=== PATIENT | female | born 1985 | race Caucasian/White ===

== ENCOUNTER 2018-03-11 00:54 | Emergency (ER) | payer OTHER ==
[2018-03-11] MEDS ORDERED: RABIES VACC,HUMAN DIPLOID (PF) 2.5 UNIT KIT IM ONE (02:24)
[2018-03-11] MEDS ORDERED: RABIES IMMUNE GLOB 150 UNIT/ML 10 ML VIAL IM ONE (02:24)
--- NOTE | 2018-03-11 02:25 | ED ---
Animal Bite HPI - General Chief Complaint: Animal Bite Stated Complaint: bat bite Time Seen by Provider: 03/11/18 01:35 Source: patient Mode of arrival: ambulatory Limitations: no limitations - History of Present Illness Initial Comments: 32-year-old female patient presents the emergency department today for evaluation after being bit by a bat. Patient states that she was attempting to get a bat out of her house, had a bag around her hand and went to grab the back , states that she felt 2 sharp punctures to the tip of the right index finger. Patient states that she did not notice any bleeding or wounds. Patient states that the finger feels abnormal. She denies any numbness or tingling. States that the back only attack once cornered. She did not retain the bats body. She is unsure how long the bat may have been present in the house. Patient denies any recent rash, fever, chills, shortness breath, chest pain, abdominal pain, nausea, vomiting, diarrhea, constipation, back pain, numbness, tingling, dizziness, weakness, hematuria, dysuria, urinary urgency, urinary frequency, headache, visual changes, or any other complaints. - Related Data Allergies Allergy/AdvReac Type Severity Reaction Status Date / Time azithromycin Allergy Abdominal Verified 03/11/18 00:59 [From Zithromax Z-Gabriele] Pain Review of Systems ROS Statement: Those systems with pertinent positive or pertinent negative responses have been documented in the HPI. ROS Other: All systems not noted in ROS Statement are negative. Past Medical History Past Medical History: No Reported History History of Any Multi-Drug Resistant Organisms: None Reported Past Surgical History: No Surgical Hx Reported Past Psychological History: No Psychological Hx Reported Smoking Status: Never smoker Past Alcohol Use History: None Reported Past Drug Use History: None Reported General Exam Limitations: no limitations General appearance: alert, in no apparent distress, other (This is a well- developed, well-nourished adult female patient in no acute distress. Vital signs upon presentation are temperature 98.2F, pulse 87, respirations 20, blood pressure 132/84, pulse ox 98% on room air.) Eye exam: Present: normal appearance, PERRL, EOMI. Absent: scleral icterus, conjunctival injection, periorbital swelling Respiratory exam: Present: normal lung sounds bilaterally. Absent: respiratory distress, wheezes, rales, rhonchi, stridor Cardiovascular Exam: Present: regular rate, normal rhythm, normal heart sounds. Absent: systolic murmur, diastolic murmur, rubs, gallop, clicks Extremities exam: Present: normal inspection, full ROM, normal capillary refill. Absent: tenderness, pedal edema, joint swelling, calf tenderness Neurological exam: Present: alert, oriented X3, CN II-XII intact Psychiatric exam: Present: normal affect, normal mood Skin exam: Present: warm, dry, intact, normal color. Absent: rash Course Vital Signs 03/11/18 00:59 Temperature 98.2 F Pulse Rate 87 Respiratory 20 Rate Blood Pressure 132/84 O2 Sat by Pulse 98 Oximetry Medical Decision Making - Medical Decision Making 32-year-old female patient percents to the emergency department today for evaluation of that bite to the right middle finger. Physical examination was relatively unremarkable, no punctures noted. We did administer rabies immune globulin, rabies vaccine, and tetanus vaccine. Patient was given prescription for follow-up doses of the rabies vaccine on days 3, 7, and 14. She was given vaccine information statement. Return parameters were discussed in detail. She verbalizes understanding and agrees with this plan. Disposition Clinical Impression: Bat bite of finger Disposition: HOME SELF-CARE Condition: Good Instructions: Animal Bite (ED), Rabies Vaccine (ED) Additional Instructions: Return for rabies vaccine administration according to the dates on the prescription. Follow-up with your primary care physician for recheck in 1-2 days. Return here immediate for any new, worsening, or concerning symptoms. Is patient prescribed a controlled substance at d/c from ED?: No Referrals: Ammon Solorzano MD [Primary Care Provider] - 1-2 days Time of Disposition: 03:22
[2018-03-11] MEDS ORDERED: DIPH,PERTUS(ACELL)TETVAC-LF 0.5 ML VIAL IM ONE (03:17)
[2018-03-11 03:47] VITALS: BP 165/118; PULSE 75; RESP 18; TEMP 98.7
== END 2018-03-11 03:47 | disposition home or self-care (01) ==
LOC: EC 00:54
DX: S61.252A Open bite of right middle finger without damage to nail, initial encounter (principal); Z23 Encounter for immunization; Z88.1 Allergy status to other antibiotic agents; W55.81XA Bitten by other mammals, initial encounter; Y92.009 Unspecified place in unspecified non-institutional (private) residence as the place of occurrence of the external cause
CPT/HCPCS: 90375; 90471; 90472; 90675; 90715; 96372; 99283

== ENCOUNTER → 2018-03-14 | Outpatient (CLI) | payer OTHER ==
[2018-03-14 09:41] VITALS: BP 140/76; PULSE 71; RESP 16; TEMP 98.4
[2018-03-14] MEDS: RABIES VACCINE (PCEC) 2.5 UNIT KIT IM ONE (10:12)
== END | disposition home or self-care (01) ==
LOC: PEDOP 09:17
PROVIDERS: ATTEND Internal Medicine
DX: Z20.3 Contact with and (suspected) exposure to rabies (principal); W53.81XD Bitten by other rodent, subsequent encounter; S61.259D Open bite of unspecified finger without damage to nail, subsequent encounter
CPT/HCPCS: 90471; 90675

== ENCOUNTER 2018-03-21 07:04 | Emergency (ER) | payer OTHER ==
[2018-03-21 07:13] VITALS: BP 125/83; PULSE 78; RESP 20; TEMP 98.4
--- NOTE | 2018-03-21 07:46 | ED ---
General Adult HPI - General Chief complaint: Skin/Abscess/Foreign Body Stated complaint: rash Time Seen by Provider: 03/21/18 07:05 Source: patient, RN notes reviewed Mode of arrival: ambulatory Limitations: no limitations - History of Present Illness Initial comments: This is a 32-year-old female who presents emergency Department with a rash to her abdomen. Patient states it itches very slightly. Patient states she's had no fever or any other symptoms. Patient states his only on her abdomen. Patient doesn't know of any new detergents or soaps. Patient states she's in the midst of getting rabies shots. Patient denies any difficulty breathing shortness of breath or throat tightening. Patient states she's never had this rash before. Patient was just concerned it might get worse. - Related Data Home Medications Medication Instructions Recorded Confirmed Cetirizine HCl [Zyrtec] 10 mg PO DAILY 03/14/18 03/21/18 Citalopram Hydrobromide [CeleXA] 40 mg PO DAILY 03/14/18 03/21/18 Esomeprazole Magnesium [NexIUM 20 mg PO HS 03/14/18 03/21/18 24Hr] Previous Rx's Medication Instructions Recorded predniSONE 40 mg PO DAILY #8 tab 03/21/18 Allergies Allergy/AdvReac Type Severity Reaction Status Date / Time azithromycin Allergy Abdominal Verified 03/14/18 09:29 [From Zithromax Z-Gabriele] Pain Review of Systems ROS Statement: Those systems with pertinent positive or pertinent negative responses have been documented in the HPI. ROS Other: All systems not noted in ROS Statement are negative. Past Medical History Past Medical History: GERD/Reflux History of Any Multi-Drug Resistant Organisms: None Reported Past Surgical History: No Surgical Hx Reported Past Psychological History: Anxiety Smoking Status: Never smoker Past Alcohol Use History: Rare Past Drug Use History: None Reported General Exam - General Exam Comments Initial Comments: GENERAL Patient is well-developed and well-nourished. Patient is in mild distress. EYES Patient's pupils are equal and round. Extraocular motion is intact SKIN Very this light abdominal rash small blanchable erythematous dots that are coordinating with hair follicles NEURO The patient is alert and oriented 3 PYSCH Patient has normal interpersonal interactions. MUSCULOSKELETAL All 4 times and full range of motion. Limitations: no limitations Course Vital Signs 03/21/18 07:09 Temperature 98.4 F Pulse Rate 78 Respiratory 20 Rate Blood Pressure 125/83 O2 Sat by Pulse 100 Oximetry Disposition Clinical Impression: Contact dermatitis Disposition: HOME SELF-CARE Condition: Good Instructions: Contact Dermatitis (ED) Prescriptions: predniSONE 40 mg PO DAILY #8 tab Is patient prescribed a controlled substance at d/c from ED?: No Referrals: Ammon Solorzano MD [Primary Care Provider] - 1-2 days Time of Disposition: 07:46
== END 2018-03-21 07:55 | disposition home or self-care (01) ==
LOC: EC 07:04
DX: L25.9 Unspecified contact dermatitis, unspecified cause (principal); K21.9 Gastro-esophageal reflux disease without esophagitis; Z79.899 Other long term (current) drug therapy; Z88.1 Allergy status to other antibiotic agents
CPT/HCPCS: 99282

== ENCOUNTER → 2022-07-25 | Outpatient (CLI) | payer OTHER ==
[2022-07-26 00:02] LABS: Basophils # (A) 0.03 X 10*3/uL (0.00-0.10); Basophils % (A) 0.5 %; Eosinophils # (A) 0.04 X 10*3/uL (0.04-0.35); Eosinophils % (A) 0.6 %; HCT 34.2 % (37.2-46.3); HGB 11.2 g/dL (12.0-15.0); Immature Grans, Automated 0.3 %; Lymphocytes # (A) 3.16 X 10*3/uL (0.90-5.00); Lymphocytes % (A) 50.6 %; MCH 27.8 pg (27.0-32.0); MCHC 32.7 g/dL (32.0-37.0); MCV 84.9 fL (80.0-97.0); Mean Platelet Volume 9.8 fL (9.5-12.2); Monocytes # (A) 0.42 X 10*3/uL (0.20-1.00); Monocytes % (A) 6.7 %; NRBC Per 100 WBC 0 /100 WBCS (0.0-0.0); Neutrophils # (A) 2.58 X 10*3/uL (1.80-7.70); Neutrophils % (A) 41.3 %; Platelet Count 263 X 10*3/uL (140-440); RBC 4.03 X 10*6/uL (4.10-5.20); RDW 13.6 % (11.5-14.5); WBC 6.25 X 10*3/uL (4.50-10.00)
[2022-07-26 00:47] LABS: ALT 23 U/L (8-44); AST 16 U/L (13-35); African American GFR (CKD) 131.1 (60.0-200.0); Albumin 3.9 g/dL (3.8-4.9); Albumin/Globulin Ratio 1.54 (1.60-3.17); Alkaline Phosphatase 74 U/L (41-126); BUN/Creat Ratio 11.63 Ratio (12.00-20.00); Blood Urea Nitrogen 8.1 mg/dL (9.0-27.0); Calcium 8.7 mg/dL (8.7-10.3); Carbon Dioxide 23.4 mmol/L (20.0-27.5); Chloride 106 mmol/L (96-109); Globulin 2.5 g/dL (1.6-3.3); Glucose 88 mg/dL (70-110); LDL Cholesterol,Calculated 106.3 mg/dL (0.0-131.0); Non-African American GFR(CKD) 113.2 (60.0-200.0); Potassium 3.8 mmol/L (3.5-5.5); Sodium 140 mmol/L (135-145); Total Protein 6.4 g/dL (6.2-8.2); Uric Acid 2.9 mg/dL (2.9-7.7)
[2022-07-26 00:48] LABS: African American GFR (CKD) 132.7 (60.0-200.0); Albumin 3.9 g/dL (3.8-4.9); Albumin/Globulin Ratio 1.59 (1.60-3.17); Anion Gap 10.5 mmol/L (10.00-18.00); BUN/Creat Ratio 12.23 Ratio (12.00-20.00); Blood Urea Nitrogen 8.2 mg/dL (9.0-27.0); Calcium 8.7 mg/dL (8.7-10.3); Carbon Dioxide 23.9 mmol/L (20.0-27.5); Globulin 2.4 g/dL (1.6-3.3); Non-African American GFR(CKD) 114.5 (60.0-200.0); Total Bilirubin 0.5 mg/dL (0.30-1.20); Total Protein 6.3 g/dL (6.2-8.2)
[2022-07-26 01:30] LABS: Erythrocyte Sedimentation Rate 29 mm/Hr (0-20)
[2022-07-26 03:07] LABS: Cyclic Citrull Pep IgG Unit <0.5 U/mL; Cyclic Citrullinated Pep IgG NEGATIVE (NEGATIVE)
[2022-07-26 04:06] LABS: Rheumatoid Factor, Qnt <10 IU/mL (0-15)
[2022-07-26 13:29] LABS: HLA B27 NEGATIVE
== END | disposition home or self-care (01) ==
LOC: LABWHC1 15:17
PROVIDERS: ATTEND Internal Medicine
DX: E78.2 Mixed hyperlipidemia (principal); M19.90 Unspecified osteoarthritis, unspecified site; R21 Rash and other nonspecific skin eruption; M25.50 Pain in unspecified joint
CPT/HCPCS: 36415; 80053; 80061; 83036; 83970; 84550; 85025; 85652; 85730; 86038; 86140; 86160; 86162; 86200; 86431; 86618; 86812

== ENCOUNTER → 2023-07-10 | Outpatient (CLI) | payer OTHER ==
--- NOTE | 2023-07-10 15:15 | US ---
EXAMINATION TYPE: US pelvis complete transvag DATE OF EXAM: 07/10/2023 COMPARISON: NONE CLINICAL INDICATION: Female, 37 years old with history of R102 PELVIC PAIN; Patient states menses are regulated by control pills, diagnosed with PCOS, no surgeries to pelvis. TECHNIQUE: . Transabdominal sonographic images of the pelvis were acquired. Transvaginal sonographi c images were medically necessary to better assess the following anatomy: RIght uterus and right ovar y Date of LMP: 06/25/2023 EXAM MEASUREMENTS: Uterus: 7.5 x 2.9 x 4.4 cm Endometrial Stripe: 1.2 cm Right Ovary: 2.9 x 2.3 x 1.6 cm Left Ovary: 3.6 x 2.0 x 2.9 cm Patient hesitant to do transvaginal exam - necessary images taken. 1. Uterus: Anteverted ? Fibroid = 1.6 x 1.3 x 1.2 cm 2. Endometrium: WNL 3. Right Ovary: WNL 4. Left Ovary: WNL 5. Bilateral Adnexa: WNL 6. Posterior cul-de-sac: WNL IMPRESSION: 1. No evidence of ovarian torsion or adnexal mass. 2. Uterine fibroid. 3. No evidence of endometrial thickening.
--- NOTE | 2023-07-11 09:13 | CA ---
Transthoracic Echo Report Name: Magnus Zelaya Age: 37 Gender: F : 1985 Exam Date: 07/10/2023 14:23 Exam Location: [facility] Ht (in): 69 Wt (lb): 300 Ordering Physician: Ammon Solorzano MD Attending/Referring Phys: Code Official Negrita Franco [facility] Procedure CPT: Indications: R07.9 CHEST PAIN Cardiac Hx: Technical Quality: Technically difficult study Contrast 1: Total Dose (mL): Contrast 2: Total Dose (mL): MEASUREMENTS (Male / Female) Normal Values 2D ECHO LV Diastolic Diameter PLAX 4.3 cm 4.2 - 5.9 / 3.9 - 5.3 cm LV Systolic Diameter PLAX 3.4 cm IVS Diastolic Thickness 0.9 cm 0.6 - 1.0 / 0.6 - 0.9 cm LVPW Diastolic Thickness 0.9 cm 0.6 - 1.0 / 0.6 - 0.9 cm LV Relative Wall Thickness 0.4 LVOT Diameter 2.0 cm Ascending Aorta Diameter 2.8 cm M-MODE Aortic Root Diameter MM 2.4 cm LA Systolic Diameter MM 3.5 cm LA Ao Ratio MM 1.4 AV Cusp Separation MM 2.3 cm DOPPLER AV Peak Velocity 174.0 cm/s AV Peak Gradient 12.1 mmHg AV Mean Velocity 117.9 cm/s AV Mean Gradient 6.5 mmHg AV Velocity Time Integral 32.6 cm LVOT Peak Velocity 152.3 cm/s LVOT Peak Gradient 9.3 mmHg LVOT Velocity Time Integral 29.7 cm LVOT Stroke Volume 96.1 cm??? LVOT Stroke Volume Index 39.2 ml/m??? LVOT Cardiac Index 2838.6 cm???/min???m??? AV Area Cont Eq vti 2.9 cm??? AV Area Cont Eq pk 2.8 cm??? Mitral E Point Velocity 104.1 cm/s Mitral A Point Velocity 66.2 cm/s Mitral E to A Ratio 1.6 MV Deceleration Time 259.4 ms LV E' Lateral Velocity 13.3 cm/s Mitral E to LV E' Lateral Ratio 7.8 LV E' Septal Velocity 8.6 cm/s Mitral E to LV E' Septal Ratio 12.1 Right Atrial Pressure 3.0 mmHg FINDINGS Left Ventricle Left ventricular wall thickness normal. Left ventricular cavity size normal. Normal left ventricular systolic function with no obvious regional wall motion abnormalities. Left ventricular ejection fraction is estimated at 55-60%. Right Ventricle Normal right ventricular size. Right Atrium Mild right atrial dilatation. Left Atrium Normal left atrial size. Mitral Valve Structurally normal mitral valve. No mitral regurgitation. Aortic Valve Trileaflet aortic valve. No aortic valve stenosis or regurgitation. Tricuspid Valve Structurally normal tricuspid valve. No tricuspid regurgitation. Pulmonic Valve Pulmonic valve not well visualized. Pericardium No pericardial effusion. Aorta Normal size aortic root and proximal ascending aorta. CONCLUSIONS Normal LV function Previewed by: Dr. Collin Ramirez MD (Electronically Signed) Final Date: 11 July 2023 09:12
== END | disposition home or self-care (01) ==
LOC: RADECHMAIN 14:02
PROVIDERS: ATTEND Internal Medicine
DX: D25.9 Leiomyoma of uterus, unspecified (principal); E28.2 Polycystic ovarian syndrome; R10.2 Pelvic and perineal pain; R07.9 Chest pain, unspecified
CPT/HCPCS: 76830; 76856; 93306

== ENCOUNTER 2024-02-15 20:15 | Emergency (ER) | payer OTHER ==
[2024-02-15 20:43] VITALS: TEMP 98.2
[2024-02-15 21:32] LABS: Appearance,Urine Clear (Clear); Bilirubin,Urine Negative (Negative); Blood,Urine Small (Negative); Color,Urine Colorless; Glucose,Urine (UA) Negative (Negative); Ketones,Urine 1+ (Negative); Leukocyte Esterase,Urine Negative (Negative); Nitrite,Urine Negative (Negative); PH, Urine 6.5 (5.0-8.0); Protein,Urine Negative (Negative); RBC,Urine <1 /hpf (0-5); Specific Gravity,Urine 1.002 (1.001-1.035); Squamous Epithelial Cell,Urine 1 /hpf (0-4); Urobilinogen,Urine <2.0 mg/dL (<2.0); WBC,Urine 1 /hpf (0-5)
[2024-02-15 22:37] LABS: Basophils % (A) 0 %; Eosinophils % (A) 0 %; HCT 41.5 % (34.0-46.0); HGB 13.5 gm/dL (11.4-16.0); Lymphocytes # (A) 1.6 k/uL (1.0-4.8); Lymphocytes % (A) 15 %; MCH 27.1 pg (25.0-35.0); MCHC 32.7 g/dL (31.0-37.0); MCV 82.9 fL (80.0-100.0); Mean Platelet Volume 8.3; Monocytes # (A) 0.5 k/uL (0-1.0); Monocytes % (A) 5 %; Neutrophils # (A) 8.4 k/uL (1.3-7.7); Neutrophils % (A) 78 %; Platelet Count 269 k/uL (150-450); RDW 13.6 % (11.5-15.5); WBC 10.8 k/uL (3.8-10.6)
[2024-02-15 22:47] LABS: ALT 16 U/L (4-34); African American GFR (CKD) >90 (>60 ml/min/1.73 sqM); Anion Gap 10 mmol/L; Blood Urea Nitrogen 6 mg/dL (7-17); Carbon Dioxide 21 mmol/L (22-30); Chloride 100 mmol/L (98-107); Glucose 99 mg/dL (74-99); Non-African American GFR(CKD) >90 (>60 ml/min/1.73 sqM); Sodium 131 mmol/L (137-145); Total Bilirubin 1.4 mg/dL (0.2-1.3)
[2024-02-15 22:56] LABS: AST 31 U/L (14-36); Albumin 4.4 g/dL (3.5-5.0); Alkaline Phosphatase 71 U/L (38-126); Potassium 4.1 mmol/L (3.5-5.1); Total Protein 7.5 g/dL (6.3-8.2)
--- NOTE | 2024-02-15 23:58 | ED ---
General Adult HPI - General Chief complaint: Nausea/Vomiting/Diarrhea Stated complaint: Blood in Urine Time Seen by Provider: 02/15/24 22:39 Source: patient Mode of arrival: ambulatory Limitations: no limitations - History of Present Illness Initial comments: 38-year-old female presents to the emergency department with nausea, vomiting and diarrhea. States that her symptoms have been persistent for several days. She states that her dog had similar symptoms. She is concerned that she may have gotten food poisoning from eating out several times at a local restaurant. She denies hematemesis. States that she has had decreased urination due to la ck of oral intake. She has generalized abdominal discomfort from vomiting. No fevers. Denies black or bloody stools. No concern for as she is on oral contraception. No other alleviating, precipitating or modifying factors - Related Data Home Medications Medication Instructions Recorded Confirmed Cetirizine HCl [Zyrtec] 10 mg PO DAILY 03/14/18 03/21/18 Citalopram Hydrobromide [CeleXA] 40 mg PO DAILY 03/14/18 03/21/18 Esomeprazole Magnesium [NexIUM 20 mg PO HS 03/14/18 03/21/18 24Hr] Previous Rx's Medication Instructions Recorded predniSONE [Deltasone] 40 mg PO DAILY #8 tab 03/21/18 Allergies Allergy/AdvReac Type Severity Reaction Status Date / Time azithromycin Allergy Abdominal Verified 03/14/18 09:29 [From Zithromax Z-Gabriele] Pain Review of Systems ROS Statement: Those systems with pertinent positive or pertinent negative responses have been documented in the HPI. ROS Other: All systems not noted in ROS Statement are negative. Past Medical History Past Medical History: GERD/Reflux History of Any Multi-Drug Resistant Organisms: None Reported Past Surgical History: No Surgical Hx Reported Past Psychological History: Anxiety Smoking Status: Never smoker Past Alcohol Use History: Rare Past Drug Use History: None Reported General Exam Limitations: no limitations General appearance: alert, in no apparent distress Head exam: Present: atraumatic, normocephalic, normal inspection Eye exam: Present: normal appearance, PERRL, EOMI. Absent: scleral icterus, conjunctival injection, periorbital swelling ENT exam: Present: normal exam, mucous membranes moist Neck exam: Present: normal inspection. Absent: tenderness, meningismus, lymphadenopathy Respiratory exam: Present: normal lung sounds bilaterally. Absent: respiratory distress, wheezes, rales, rhonchi, stridor Cardiovascular Exam: Present: regular rate, normal rhythm, normal heart sounds. Absent: systolic murmur, diastolic murmur, rubs, gallop, clicks GI/Abdominal exam: Present: soft, normal bowel sounds. Absent: distended, tenderness, guarding, rebound, rigid Extremities exam: Present: normal inspection, full ROM, normal capillary refill. Absent: tenderness, pedal edema, joint swelling, calf tenderness Back exam: Present: normal inspection Neurological exam: Present: alert, oriented X3, CN II-XII intact Psychiatric exam: Present: normal affect, normal mood Skin exam: Present: warm, dry, intact, normal color. Absent: rash Course Vital Signs 02/15/24 02/16/24 20:41 01:52 Temperature 98.2 F Pulse Rate 104 H 89 Respiratory 20 18 Rate Blood Pressure 155/96 123/78 O2 Sat by Pulse 100 99 Oximetry Medical Decision Making - Medical Decision Making Was pt. sent in by a medical professional or institution (, PA, TIRE DEBEADER, urgent care, hospital, or senior care...) When possible be specific @ -No Did you speak to anyone other than the patient for history (EMS, parent, family, police, friend...)? What history was obtained from this source @ -No Did you review nursing and triage notes (agree or disagree)? Why? @ -I reviewed and agree with nursing and triage notes Were old charts reviewed (outside hosp., previous admission, EMS record, old EKG, old radiological studies, urgent care reports/EKG's, senior care records)? Report findings @ -No old charts were reviewed Differential Diagnosis (chest pain, altered mental status, abdominal pain women, abdominal pain men, vaginal bleeding, weakness, fever, dyspnea, syncope, head ache, dizziness, GI bleed, back pain, seizure, CVA, palpatations, mental health, musculoskeletal)? @ -Differential Abdominal Pain Women: Appendicitis, Cholecystitis, diverticulosis, ischemic bowel, pancreatitis, hepatitis, UTI, gastroenteritis, AAA, incarcerated hernia, bowel obstruction, constipation, inflammatory bowel, hepatitis, peptic ulcer disease, splenic infarction, perforated viscus, vulvitis, ovarian torsion, PID, kidney stone, placenta abruption, this is not meant to be an all-inclusive list EKG interpreted by me (3pts min.). @ -Yes and demonstrates sinus tachycardia with a rate of 111. NM interval 135. QRS 85. QTc of 390. No acute ST segment elevations. Mild ST depression 3 and aVF X-rays interpreted by me (1pt min.). @ -None done CT interpreted by me (1pt min.). @ -None done U/S interpreted by me (1pt. min.). @ -None done What testing was considered but not performed or refused? (CT, X-rays, U/S, labs)? Why? @ -None What meds were considered but not given or refused? Why? @ -None Did you discuss the management of the patient with other professionals (tod greene i.e. , PA, TIRE DEBEADER, lab, RT, psych nurse, manager social responsibility, wood carving machine operator, teacher, contract officer, outpatient case manager)? Give summary @ -No Was smoking cessation discussed for >3mins.? @ -No Was critical care preformed (if so, how long)? @ -No Were there social determinants of health that impacted care today? How? (Homelessness, low income, unemployed, alcoholism, drug addiction, transportation, low edu. Level, literacy, decrease access to med. care, [place] [facility], rehab)? @ -No Was there de-escalation of care discussed even if they declined (Discuss DNR or withdrawal of care, Hospice)? DNR status @ -No What co-morbidities impacted this encounter? (DM, HTN, Smoking, COPD, CAD, Cancer, CVA, ARF, Chemo, Hep., AIDS, mental health diagnosis, sleep apnea, morbid obesity)? @ -None Was patient admitted / discharged? Hospital course, mention meds given and route, prescriptions, significant lab abnormalities, going to OR and other pertinent info. @Upon arrival patient seen and evaluated in room 30. Thorough history and physical exam was performed. IV access was established and patient is administered IV fluids and nausea medications. Laboratory studies are conducted. Patient does admit to some chest pain therefore twelve-lead EKG and chest x-ray was performed. Results discussed with patient. She does admit to improvement in her symptoms after fluid administration. I did attempt to obtain a stool sample however the patient does not have any diarrhea in the emergency department. The diagnosis, differential treatment options are discussed with patient. At this time she will be discharged home. Instructed follow-up with her primary care doctor and return for any new or worsening symptoms. Patient given Lomotil and Zofran starter packs to go home. Patient discharged in stable condition Undiagnosed new problem with uncertain prognosis? @ -No Drug Therapy requiring intensive monitoring for toxicity (Heparin, Nitro, Insulin, Cardizem)? @ -No Were any procedures done? @ -No Diagnosis/symptom? @ -Acute nausea, vomiting and diarrhea, acute atypical chest pain Acute, or Chronic, or Acute on Chronic? @ -Acute Uncomplicated (without systemic symptoms) or Complicated (systemic symptoms)? @ -Complicated Side effects of treatment? @ -No Exacerbation, Progression, or Severe Exacerbation? @ -No Poses a threat to life or bodily function? How? (Chest pain, [place], [place], pneumonia, PE, COPD, DKA, ARF, appy, cholecystitis, CVA, Diverticulitis, Homicidal, Suicidal, threat to staff... and all critical care pts) @ -No - Lab Data Result diagrams: 02/15/24 21:44 02/15/24 21:44 Lab Results 02/15/24 02/15/24 02/15/24 Range/Units 20:44 21:44 21:44 WBC 10.8 H (3.8-10.6) k/uL RBC 5.00 (3.80-5.40) m/uL Hgb 13.5 (11.4-16.0) gm/dL Hct 41.5 (34.0-46.0) % MCV 82.9 (80.0-100.0) fL MCH 27.1 (25.0-35.0) pg MCHC 32.7 (31.0-37.0) g/dL RDW 13.6 (11.5-15.5) % Plt Count 269 (150-450) k/uL MPV 8.3 Neutrophils % 78 % Lymphocytes % 15 % Monocytes % 5 % Eosinophils % 0 % Basophils % 0 % Neutrophils # 8.4 H (1.3-7.7) k/uL Lymphocytes # 1.6 (1.0-4.8) k/uL Monocytes # 0.5 (0-1.0) k/uL Eosinophils # 0.0 (0-0.7) k/uL Basophils # 0.0 (0-0.2) k/uL Sodium 131 L (137-145) mmol/L Potassium 4.1 (3.5-5.1) mmol/L Chloride 100 (98-107) mmol/L Carbon Dioxide 21 L (22-30) mmol/L Anion Gap 10 mmol/L BUN 6 L (7-17) mg/dL Creatinine 0.73 (0.52-1.04) mg/dL Est GFR (CKD-EPI)AfAm >90 (>60 ml/min/1.73 sqM) Est GFR (CKD-EPI)NonAf >90 (>60 ml/min/1.73 sqM) Glucose 99 (74-99) mg/dL Calcium 9.0 (8.4-10.2) mg/dL Total Bilirubin 1.4 H (0.2-1.3) mg/dL AST 31 (14-36) U/L ALT 16 (4-34) U/L Alkaline Phosphatase 71 (38-126) U/L Troponin I (0.000-0.034) ng/mL Total Protein 7.5 (6.3-8.2) g/dL Albumin 4.4 (3.5-5.0) g/dL Urine Color Colorless Urine Appearance Clear (Clear) Urine pH 6.5 (5.0-8.0) Ur Specific [place] 1.002 (1.001-1.035) Urine Protein Negative (Negative) Urine Glucose (UA) Negative (Negative) Urine Ketones 1+ H (Negative) Urine Blood Small H (Negative) Urine Nitrite Negative (Negative) Urine Bilirubin Negative (Negative) Urine Urobilinogen <2.0 (<2.0) mg/dL Ur Leukocyte Esterase Negative (Negative) Urine RBC <1 (0-5) /hpf Urine WBC 1 (0-5) /hpf Ur Squamous Epith Cells 1 (0-4) /hpf 02/16/24 Range/Units 00:22 WBC (3.8-10.6) k/uL RBC (3.80-5.40) m/uL Hgb (11.4-16.0) gm/dL Hct (34.0-46.0) % MCV (80.0-100.0) fL MCH (25.0-35.0) pg MCHC (31.0-37.0) g/dL RDW (11.5-15.5) % Plt Count (150-450) k/uL MPV Neutrophils % % Lymphocytes % % Monocytes % % Eosinophils % % Basophils % % Neutrophils # (1.3-7.7) k/uL Lymphocytes # (1.0-4.8) k/uL Monocytes # (0-1.0) k/uL Eosinophils # (0-0.7) k/uL Basophils # (0-0.2) k/uL Sodium (137-145) mmol/L Potassium (3.5-5.1) mmol/L Chloride (98-107) mmol/L Carbon Dioxide (22-30) mmol/L Anion Gap mmol/L BUN (7-17) mg/dL Creatinine (0.52-1.04) mg/dL Est GFR (CKD-EPI)AfAm (>60 ml/min/1.73 sqM) Est GFR (CKD-EPI)NonAf (>60 ml/min/1.73 sqM) Glucose (74-99) mg/dL Calcium (8.4-10.2) mg/dL Total Bilirubin (0.2-1.3) mg/dL AST (14-36) U/L ALT (4-34) U/L Alkaline Phosphatase (38-126) U/L Troponin I <0.012 (0.000-0.034) ng/mL Total Protein (6.3-8.2) g/dL Albumin (3.5-5.0) g/dL Urine Color Urine Appearance (Clear) Urine pH (5.0-8.0) Ur Specific [place] (1.001-1.035) Urine Protein (Negative) Urine Glucose (UA) (Negative) Urine Ketones (Negative) Urine Blood (Negative) Urine Nitrite (Negative) Urine Bilirubin (Negative) Urine Urobilinogen (<2.0) mg/dL Ur Leukocyte Esterase (Negative) Urine RBC (0-5) /hpf Urine WBC (0-5) /hpf Ur Squamous Epith Cells (0-4) /hpf Disposition Clinical Impression: Nausea & vomiting, Chest pain, Diarrhea Disposition: HOME SELF-CARE Condition: Stable Instructions (If sedation given, give patient instructions): Acute Nausea and Vomiting (ED) Additional Instructions: Please use the nausea medications and diarrhea medications as instructed. Follow-up with your primary care doctor and return for any new or worsening symptoms Is patient prescribed a controlled substance at d/c from ED?: No Referrals: Ammon Solorzano MD [Primary Care Provider] - 1-2 days Time of Disposition: 01:39
[2024-02-16] MEDS: SODIUM CHLORIDE 0.9% 2,000 ML IV STA (00:15)
[2024-02-16] MEDS: ONDANSETRON 4 MG/2 ML VIAL IVP STA (00:16)
[2024-02-16] MEDS: KETOROLAC 15 MG/ML 1 ML VIAL IVP STA (00:17)
[2024-02-16] MEDS: ONDANSETRON 4 MG ODT STARTER PACK 2 TAB BTL PO STA (01:46)
[2024-02-16] MEDS: DIPHENOX-ATROP STARTER PACK 8 TAB BTL PO STA (01:47)
[2024-02-16 01:55] VITALS: BP 123/78; PULSE 89; RESP 18
--- NOTE | 2024-02-16 02:28 | XR ---
EXAM: XR Chest, 2 Views CLINICAL HISTORY: Cough/pain TECHNIQUE: Frontal and lateral views of the chest. COMPARISON: No relevant prior studies available. FINDINGS: Lungs: No consolidation. No atelectasis. No CHF. Pleural space: No pleural effusion. No pneumothorax. Heart: No cardiomegaly. Mediastinum: Unremarkable. Normal mediastinal contour. Bones/joints: Unremarkable. No acute fracture. IMPRESSION: No acute abnormality.
== END 2024-02-16 01:52 | disposition home or self-care (01) ==
LOC: EC 20:15
DX: R11.2 Nausea with vomiting, unspecified (principal); R19.7 Diarrhea, unspecified; R07.89 Other chest pain; R00.0 Tachycardia, unspecified; Z88.1 Allergy status to other antibiotic agents
CPT/HCPCS: 36415; 80053; 84484; 85025; 81001; 71046; 99284; 96374; 96375; 96361; J2405; J1885; S0119

== ENCOUNTER → 2024-07-06 | Outpatient (CLI) | payer OTHER ==
--- NOTE | 2024-07-06 15:47 | US ---
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 TECHNIQUE: Scanned posterior left and midline neck at patient's area of concern. FINDINGS/IMPRESSION: Isoechoic area seen left posterior neck = 2.0 x 2.8 x 0.9 cm. No internal color flow. Somewhat striated appearance. Favored to represent a lipoma. No abnormalities seen posterior m idline neck at patient's other smaller palpable area. [facility], , 07/06/2024 3:44 PM
== END | disposition home or self-care (01) ==
LOC: RADUSWWP 15:22
PROVIDERS: ATTEND Internal Medicine
DX: D17.0 Benign lipomatous neoplasm of skin and subcutaneous tissue of head, face and neck (principal)
CPT/HCPCS: 76536